=== PATIENT | female | born 1945 | race Caucasian/White ===

== ENCOUNTER → 2018-01-14 | Outpatient (CLI) | payer OTHER | LOC: BHFA 13:00 | PROVIDERS: ATTEND Internal Medicine Cardiovascular Disease | DX: I27.20 Pulmonary hypertension, unspecified (principal); I50.9 Heart failure, unspecified | CPT/HCPCS: 78452; 93017; A9500; J2785 ==

== ENCOUNTER 2018-02-12 08:59 | Inpatient (IN) | payer OTHER ==
[2018-02-12] MEDS ORDERED: DIAZEPAM 5 MG TAB PO ONE (09:05)
[2018-02-12] MEDS ORDERED: NS 1,000 ML IV ONE (09:05)
[2018-02-12] MEDS ORDERED: ASPIRIN EC 325 MG TAB PO ONE (09:05)
[2018-02-12] MEDS ORDERED: FAMOTIDINE 20 MG TAB PO ONE (09:05)
[2018-02-12] MEDS ORDERED: diphenhydrAMINE 25 MG CAP PO ONE (09:05)
[2018-02-12 10:01] LABS: PLATELET COUNT 136 10^3/uL (150-400)
[2018-02-12 10:02] LABS: INR 1.15 (0.83-1.16); PROTIME(PATIENT) 14.9 SEC (12.0-15.0)
[2018-02-12] MEDS ORDERED: LIDOCAINE 1% 300 MG/30 ML SDV ONE (11:15)
[2018-02-12] MEDS ORDERED: IOPAMIDOL (ISOVUE-370) 150 ML BTL IV ONE (11:16)
[2018-02-12] MEDS ORDERED: MIDAZOLAM 2 MG/2 ML VIAL ONE (11:16)
[2018-02-12] MEDS ORDERED: fentaNYL 100 MCG/2 ML INJ ONE (11:16)
--- NOTE | 2018-02-12 11:45 | PDGENHP ---
History & Physical Chief Complaint: Abnormal MPI, HTN. History of Present Illness: 72-year-old female with a history of drug refractory hypertension and diabetes currently on hemodialysis Saturday and Saturday with a history of symptoms of dyspnea and a recent stress myocardial perfusion imaging study demonstrating redistribution in the anterior wall. She is referred for coronary angiography. Additionally, following the procedure plans to admit her to the hospital to establish an adequate drug regimen to control her blood pressure. Pertinent Past, Social, Family History: Drug refractory hypertension, type 2 diabetes mellitus, end-stage renal disease currently on hemodialysis. Relevant Physical Exam: Alert and oriented, clear lungs, regular rate and rhythm with a 2/6 systolic ejection murmur left sternal border, left BKA, dopplerable right lower extremity pulses, bounding right femoral arterial pulse. Cardiorespiratory Assessment: 72-year-old female with multiple cardiac risk factors as defined above. She has an abnormal stress myocardial perfusion imaging study with intermediate risk features that suggest ischemia in the distribution of the LAD. She is referred for coronary angiography. She is stable from a cardiopulmonary perspective to undergo the procedure.
--- NOTE | 2018-02-12 11:45 | PDPROPOC ---
Sedation Plan of Care Sedation Plan of Care: vital signs stable, mental status noted, patient educated of risks, benefits, alternatives, patient can tolerate sedation ASA Classification: ASA 2 Planned drugs: fentanyl, midazolam Mallampati Score: Class 2 Mallampati Reference Image: Patient passed 3-3-2 rule?: Yes
[2018-02-12] MEDS ORDERED: hydrALAZINE 20 MG/ML VIAL ONE ×2 (11:51→16:41)
[2018-02-12] MEDS ORDERED: HEPARIN 10,000 UNIT/10 ML MDV (1,000 UNIT/ML) ONE (11:53)
[2018-02-12] MEDS ORDERED: BIVALIRUDIN 250 MG/5 ML VIAL IV ONE (12:19)
[2018-02-12] MEDS ORDERED: NITROGLYCERIN 0.4 MG BTL SL PRN (12:56)
[2018-02-12] MEDS ORDERED: ATROPINE SULFATE 1 MG/10 ML SYR IVP PRN (12:56)
[2018-02-12] MEDS ORDERED: ONDANSETRON 4 MG/2 ML VIAL IVP PRN (12:56)
--- NOTE | 2018-02-12 13:53 | CPEKG ---
Test Reason : OPEN Blood Pressure : / mmHG Vent. Rate : 057 BPM Atrial Rate : 058 BPM P-R Int : 173 ms QRS Dur : 103 ms QT Int : 491 ms P-R-T Axes : 034 006 014 degrees QTc Int : 478 ms Sinus rhythm Anteroseptal infarct, old Minimal ST depression, anterolateral leads Confirmed by Puma Franco ([id number]) on 02/12/2018 1:53:12 PM Referred By: Confirmed By:Puma Franco
--- NOTE | 2018-02-12 14:43 | PDDXCAT ---
Diagnostic Cath Note - . Date: 02/12/18 Supervisor Force Adjustment: Vishal Indication: other (Symptoms of exertional dyspnea. Abnormal nuclear stress test suggesting a% reversible perfusion defect in the distribution of the left anterior descending coronary artery.) - Procedure Access: right groin Procedure: left heart catheterization, coronary angiography, other (Left ventriculography was not performed.) - Materials Left Heart Cath size: 6F Left Heart Cath materials: JL4.0, JR3.5 Right Heart Cath size: 5F - Findings-Left Heart Catheterization LM: Prior to injection of contrast dye the coronary tree was visualized due to heavily calcified vessels. The left main is a large caliber vessel. There is a distal eccentric echo lucency consistent with a calcium shelf that does not result in visual obstruction of the lumen of the blood vessel. There is appropriate bifurcation into the left anterior descending and circumflex distributions. LAD: The LAD, as noted above, is heavily calcified. There are 2 diagonal branches identified. A 40% proximal little traverse LAD lesion is noted. A 70% lesion is noted at and involving the origin of a 2nd diagonal branch. The 2nd diagonal branch is a bifurcating vessel. The inferior branch is noted to be subtotally occluded with MALENA 1 flow. LCX: This is a moderate caliber vessel. There are 5 small diffusely diseased surgically insignificant diagonal branches noted. Otherwise the circumflex contains no obstructive lesions. RCA: The right coronary artery is dominant. The PDA and posterolateral branches are identified. There is a 50% stenosis noted in the distal right coronary artery within the AV groove. The right posterolateral branches distally occluded. Complications: None. Estimated blood loss: <50ml Closure method: Angioseal Assessment: 1. [place] coronary artery disease as described above with diffuse "diabetic"appearing vessels characterized by heavily calcified coronary arteries and severely diseased branch vessels. There is, however, a focal 70% lesion in the mid LAD at the origin of a 2nd diagonal branch. 2. A left ventriculogram was not performed. 3. Abnormal stress MPI demonstrating an 8% anterior reversible defect consistent with the above findings. 4. History of diabetes, drug refractory hypertension and end-stage renal disease on hemodialysis. Plan: The case was discussed with interventional cardiology. Attempts were made at intravascular ultrasound of the LAD. This was performed in an attempt to further delineate the severity of disease in the proximal LAD and left main. Unfortunately, this procedure was not successful due to inability to pass the marlyn catheter. As result, the procedure was aborted. We elected to proceed with medical therapy. In the event that medical therapy is not successful the patient can be returned to the cardiac catheterization laboratory for further evaluation and a planned revascularization of the LAD.
[2018-02-12] MEDS ORDERED: HYDROCODONE/APAP 5/325 TAB PO ONE (15:15)
--- NOTE | 2018-02-12 15:27 | SOAPPROG ---
SOAP Progress Note Assessment/Plan: Assessment: #ESRD- Main MWF (Dr. Flores) -plan HD either late this evening or early am then back to [facility] schedule -AVF access #CAD s/p cath today -no intervention, plan medical management for now- I discussed with Dr. Rodgers #Resistant HTN increase losartan to 100mg daily continue bystolic-- defer to cardiology on dose preference (I wrote for 5mg for now and HR in 50s) continue hydralazine 50mg po tid-- we have room to increase this will continue clonidine but will convert to po instead of patch so we can taper off -try to taper off tomorrow-- if needed, we can add in minoxidil (pt aware of hirsuitism) could change amlodipine to nifedipine ideally plan to get off clonidine and maybe nifedipine if tolerates minoxidil volume status looks good currently #Anemia of CKD -Hb at goal, continue MANJULA weekly dosing #MBD of CKD -renal diet when taking po -phoslo 667 mg po tid meals #hypothryoidism -continue synthroid I discussed with Dr. Rodgers and family Latanya Wallis MD [facility] pager [phone] 02/12/18 15:37 Subjective: 72 W with ESRD ( Main MWF Dr. Flores), DM2, resistant HTN admitted for elective cath given abnormal stress test. She has difficult to manage BP and not liking clonidine. Discussing with Dr. Flores, plan has been to transition off this and start minoxidil. She is also on ARB, hydralazine, beta mely. She underwent cath and no intervention required (does have some stenosis LAD and plans for medical management at this point). I saw her in recovery area in laboratory administrative director and she still has sheath in. Feels cold but denies any cp, sob, n/v. Son present. Objective: Laboratory Results 02/12/18 09:20 02/12/18 09:20 PT 14.9 SEC (12.0-15.0) 02/12/18 09:20 INR 1.15 (0.83-1.16) 02/12/18 09:20 Physical Exam - Physical Exam General Appearance: alert, no apparent distress, other (lying flat in bed comfortably on O2 by NC, speaking full sentences) EENT: other (mmm) Neck: supple Respiratory: lungs clear Cardiac/Chest: regular rate, rhythm, other (no rub) Abdomen: normal bowel sounds, non-tender, soft Skin: warm/dry Extremities: other (sheath still in ,legs warm, no edema, UE AVF +thrill/bruit) Neuro/Psych: alert, oriented x 3 ICD10 Worksheet Patient Problems: Problems Problem Status Onset ESRD (end stage renal disease) Acute - ICD10 Problem Qualifiers (1) ESRD (end stage renal disease)
[2018-02-12] MEDS ORDERED: hydrALAZINE 20 MG/ML VIAL IVP ONE (16:45)
[2018-02-12] MEDS: HYDROCODONE/APAP 5/325 TAB PO PRN (17:28)
[2018-02-12] MEDS: CALCIUM ACETATE 667 MG CAP PO SCH (20:04)
[2018-02-12] MEDS: NIFEdipine ER 60 MG TAB PO SCH (20:04)
[2018-02-13 04:41] LABS: PLATELET COUNT 126 10^3/uL (150-400)
--- NOTE | 2018-02-13 07:58 | SOAPPROG ---
JOSUE Progress Note Assessment/Plan: Assessment: ESRD, HD today HTN, difficult to control, better today PVOD/BKA on left CAD, 70% LAD lesion, med mgmt for now calcified cor vessels Plan: continue current anti HTN meds I would be interested in her intra aortic pressure, with calcified coronary vessels, wondering if some of her HTN is due to noncompressible peripheral vessels leading to spurious readings HD tomorrow 02/13/18 07:53 Subjective: feels fine today no cp sob nausea vomiting anorexia or fatigue slept OK appetite OK no pain Objective: Vital Signs Temp Pulse Resp BP Pulse Ox 36.7 C 45 L 16 116/45 L 93 02/13/18 04:00 02/13/18 04:00 02/13/18 04:00 02/13/18 04:00 02/13/18 04:00 Laboratory Results 02/13/18 03:23 02/13/18 03:23 02/12/18 02/13/18 02/14/18 05:59 05:59 05:59 Intake Total 1100 Balance 1100 PT 14.9 SEC (12.0-15.0) 02/12/18 09:20 INR 1.15 (0.83-1.16) 02/12/18 09:20 Physical Exam - Physical Exam General Appearance: alert, thin Neck: normal inspection Respiratory: No rhonchi, No wheezing Cardiac/Chest: regular rate, rhythm, systolic murmur, No edema, No friction rub Abdomen: normal bowel sounds, non-tender, soft Skin: warm/dry Extremities: other (LBKA), No swelling Neuro/Psych: alert, normal mood/affect, oriented x 3 ICD10 Worksheet Patient Problems: Problems Problem Status Onset ESRD (end stage renal disease) Acute
[2018-02-13] MEDS: CALCIUM ACETATE 667 MG CAP PO SCH ×3 (09:16→17:52)
--- NOTE | 2018-02-13 10:08 | SOAPPROG ---
JOSUE Progress Note Assessment/Plan: Assessment: 1. Coronary artery disease. She has heavily calcified/diabetic coronary disease with the most significant lesion being a 70% mid LAD lesion. In talking to her she has no symptoms of angina. Based on her overall health and initial difficulties in performing an intravascular ultrasound the decision was made to manage her medically. Thus far she appears to be doing well. If we have difficulties with events that are suspicious for ischemia we can bring her back to the equipment operator/laborer/supervisor for a planned revascularization. 2. Hypertension. Her intra arterial blood pressures during the cardiac catheterization were consistent with her noninvasive measurements. I think a lot of her hypertension is on the basis of noncompliant blood vessels. With a recent adjustments in her medications we have seen some improvement in her blood pressure control. 3. Diabetes mellitus. 4. Hyperlipidemia. 5. End-stage renal disease currently on hemodialysis. 6. PVD status post left BKA. This appears stable. Plan: 1. We will continue hospital observation on her current antihypertensive regimen. 2. During his hospitalization we will attempt to transition her off of clonidine as she has experienced significant xerostomia. 3. Will defer to Nephrology regarding management of her hemodialysis. 02/13/18 10:08 Subjective: She states that she feels much better today. When I asked her to be more specific regarding why she feels better she really can't put her finger on it. She specifically denies chest pain and symptoms of dyspnea. She has had no pain at the right groin access site. She is currently undergoing hemodialysis. Blood pressures have been improved with the recent changes in her medications. Objective: Vital Signs Temp Pulse Resp BP Pulse Ox 36.7 C 45 L 16 116/45 L 93 02/13/18 04:00 02/13/18 04:00 02/13/18 04:00 02/13/18 04:00 02/13/18 04:00 Laboratory Results 02/13/18 03:23 02/13/18 03:23 02/12/18 02/13/18 02/14/18 05:59 05:59 05:59 Intake Total 1100 Balance 1100 PT 14.9 SEC (12.0-15.0) 02/12/18 09:20 INR 1.15 (0.83-1.16) 02/12/18 09:20 Physical Exam - Physical Exam General Appearance: thin EENT: PERRL/EOMI, normal ENT inspection, pharynx normal, TMs normal Neck: non-tender, full range of motion, supple, normal inspection Respiratory: chest non-tender, lungs clear, normal breath sounds Cardiac/Chest: regular rate, rhythm, No edema, No gallop, No JVD Peripheral Pulses: 2+: carotid (R), carotid (L), femoral (R), femoral (L), dorsalis-pedis (R), dorsalis-pedis (L) Abdomen: normal bowel sounds, non-tender, soft Pelvic Exam: deferred Rectal: deferred Back: Normal inspection Skin: normal color, warm/dry Lymphatic: no adenopathy Extremities: normal range of motion, non-tender, normal inspection, normal capillary refill Neuro/Psych: no motor/sensory deficits, alert, normal mood/affect, oriented x 3 ICD10 Worksheet Patient Problems: Problems Problem Status Onset ESRD (end stage renal disease) Acute
[2018-02-13] MEDS: NEBIVOLOL HCL 5 MG TAB PO SCH (11:44)
[2018-02-13] MEDS: NIFEdipine ER 60 MG TAB PO SCH ×2 (11:45→20:48)
[2018-02-13] MEDS: LOSARTAN POTASSIUM 50 MG TAB PO SCH (11:45)
--- NOTE | 2018-02-13 14:06 | PDMN ---
Medical Necessity Medical necessity: [facility] M197 Hypertension: 82 yo w/ abn nuc stress test here for cardiac cath w/ results showing CAD, heavily calcified coronary arteries and severely diseased branch vessels and a focal 70% lesion mid LAD. Interventional cardiology brought in w/ attempt to do intravascular U/S of LAD but procedure unsuccessful. Current plan is to proceed with medical therapy. Pt having issues w/ HTN during and post procedure, last SBP 170s, pt requires additional MN to get BP under control given comorbidities, cardiac risk and will need cont tele monitoring and monitoring for s/sx ischemia. Sig med hx for drug refractory HTN, DM, ESRD currently on hemodialysis, PVD w/ L BKA. Change to IP status 02/13 @1345 per MD order.
--- NOTE | 2018-02-13 14:17 | ASMTCMCOM ---
CM Note CM Note Notes: Pt is a 72 y/o female admitted for abnormal MPI and HTN. Pt is currently on hemodialysis MWF. PT has been ordered and awaiting recommendations. Needs are TBD at this time. CM to follow. Plan: TBD Date Signed: 02/13/2018 02:16 PM Electronically Signed By:MARGARITA Stovall
[2018-02-13] MEDS: HYDROCODONE/APAP 5/325 TAB PO PRN (17:59)
[2018-02-14 04:40] LABS: PLATELET COUNT 130 10^3/uL (150-400)
--- NOTE | 2018-02-14 09:03 | SOAPPROG ---
JOSUE Progress Note Assessment/Plan: Assessment: ESRD, HD today HTN, difficult to control, better today PVOD/BKA on left CAD, 70% LAD lesion, med mgmt for now calcified cor vessels bradycardia into the 40s Plan: continue current anti HTN meds, bradycardia: may want to consider weaning catapress off, or perhaps a lower dose , need the beta mely for her CAD I would be interested in her intra aortic pressure, with calcified coronary vessels, wondering if some of her HTN is due to noncompressible peripheral vessels leading to spurious readings HD today 02/13/18 07:53 02/14/18 08:58 Subjective: spirits good tolerating HD today no cp sob nausea or vomiting appetite OK, [place] toast doesn't taste good to her no abd pain sleeping ok energy is OK Objective: Vital Signs Temp Pulse Resp BP Pulse Ox 36.7 C 47 L 16 141/93 H 95 02/14/18 04:00 02/14/18 04:00 02/14/18 04:00 02/14/18 04:00 02/14/18 04:00 Laboratory Results 02/14/18 03:30 02/14/18 03:30 02/13/18 02/14/18 02/15/18 05:59 05:59 05:59 Intake Total 1100 550 Output Total 3000 Balance 1100 -2450 PT 14.9 SEC (12.0-15.0) 02/12/18 09:20 INR 1.15 (0.83-1.16) 02/12/18 09:20 Physical Exam - Physical Exam General Appearance: alert, thin Neck: normal inspection Respiratory: No rhonchi, No wheezing Cardiac/Chest: regular rate, rhythm, systolic murmur, No edema, No friction rub Abdomen: normal bowel sounds, non-tender, soft Extremities: No pedal edema Neuro/Psych: alert, normal mood/affect, oriented x 3 ICD10 Worksheet Patient Problems: Problems Problem Status Onset ESRD (end stage renal disease) Acute
[2018-02-14] MEDS: CALCIUM ACETATE 667 MG CAP PO SCH ×3 (09:12→16:48)
[2018-02-14] MEDS: NIFEdipine ER 60 MG TAB PO SCH ×2 (11:10→19:59)
[2018-02-14] MEDS: NEBIVOLOL HCL 5 MG TAB PO SCH ×2 (11:11→19:17)
[2018-02-14] MEDS: LOSARTAN POTASSIUM 50 MG TAB PO SCH (11:11)
--- NOTE | 2018-02-14 14:31 | SOAPPROG ---
SOAP Progress Note Assessment/Plan: Assessment: 1. Coronary artery disease. She has heavily calcified/diabetic coronary disease with the most significant lesion being a 70% mid LAD lesion. In talking to her she has no symptoms of angina. Based on her overall health and initial difficulties in performing an intravascular ultrasound the decision was made to manage her medically. Thus far she appears to be doing well. If we have difficulties with events that are suspicious for ischemia we can bring her back to the dental lab technician for a planned revascularization. 2. Hypertension. Her intra arterial blood pressures during the cardiac catheterization were consistent with her noninvasive measurements. I think a lot of her hypertension is on the basis of noncompliant blood vessels. With a recent adjustments in her medications we have seen some improvement in her blood pressure control. 3. Diabetes mellitus. 4. Hyperlipidemia. 5. End-stage renal disease currently on hemodialysis. 6. PVD status post left BKA. This appears stable. 7. Bradycardia. 02/14/2018: Overall I am very happy with how she is doing. The overall trend of her blood pressure curve has been highly favorable without significant episodes of hypotension. Plan: Will plan to cut her oral clonidine and half today. I will continue her other medications. We will need to carefully follow her blood pressures as we gradually wean her off the clonidine. I think that it is likely she will be stable for discharge tomorrow. Our goal during this hospitalization was to have better blood pressure control which I think we have achieved. I do not think that we can shoot for perfect blood pressure control without eliciting symptoms. We will have to gradually up titrate her medications in the outpatient environment to improve upon her blood pressure control. 02/14/18 14:29 Subjective: She states that she continues to feel well. She has not had any chest pain or symptoms of dizziness. She did have dialysis successfully performed today. The overall trend of her blood pressures has been toward improvement. She is, however, significantly bradycardic. Objective: Vital Signs Temp Pulse Resp BP Pulse Ox 36.6 C 53 L 16 149/54 H 98 02/14/18 11:31 02/14/18 11:31 02/14/18 11:31 02/14/18 11:31 02/14/18 11:31 Laboratory Results 02/14/18 03:30 02/14/18 03:30 02/13/18 02/14/18 02/15/18 05:59 05:59 05:59 Intake Total 1100 550 Output Total 3000 Balance 1100 -2450 PT 14.9 SEC (12.0-15.0) 02/12/18 09:20 INR 1.15 (0.83-1.16) 02/12/18 09:20 Physical Exam - Physical Exam General Appearance: alert, no apparent distress, thin EENT: PERRL/EOMI, normal ENT inspection, pharynx normal, TMs normal Neck: non-tender, full range of motion, supple, normal inspection Respiratory: chest non-tender, lungs clear, normal breath sounds Cardiac/Chest: normal peripheral pulses, bradycardia Peripheral Pulses: 2+: carotid (R), carotid (L) Abdomen: normal bowel sounds, non-tender, soft Pelvic Exam: deferred Rectal: deferred Back: Normal inspection Skin: normal color, warm/dry Lymphatic: no adenopathy Extremities: normal range of motion, non-tender, normal inspection, normal capillary refill Neuro/Psych: no motor/sensory deficits, alert, normal mood/affect, oriented x 3 ICD10 Worksheet Patient Problems: Problems Problem Status Onset ESRD (end stage renal disease) Acute
[2018-02-14] MEDS: HYDROCODONE/APAP 5/325 TAB PO PRN (20:05)
[2018-02-15] MEDS ORDERED: NIFEdipine ER 60 MG TAB PO SCH
[2018-02-15] MEDS: LOSARTAN POTASSIUM 50 MG TAB PO SCH (08:29)
[2018-02-15] MEDS: CALCIUM ACETATE 667 MG CAP PO SCH ×2 (08:29→12:31)
[2018-02-15] MEDS: NIFEdipine ER 60 MG TAB PO SCH (08:30)
[2018-02-15] MEDS: NEBIVOLOL HCL 5 MG TAB PO SCH (08:41)
--- NOTE | 2018-02-15 09:39 | SOAPPROG ---
JOSUE Progress Note Assessment/Plan: Assessment: I take care of Ally [facility] in [place]. -I've reviewed her coronary anatomy with Dr. Rodgers. At this point, it doesn't seem as if she has been having issues with ischemia, even on dialysis. We are going to follow -BP is better with adjustment of CCB. We are weaning clonidine -Next HD Saturday -She is ok for DC. Plan: 02/15/18 09:37 Subjective: Doing well, in good spirits Objective: Vital Signs Temp Pulse Resp BP Pulse Ox 36.7 C 48 L 18 148/47 H 91 L 02/15/18 08:19 02/15/18 08:19 02/15/18 08:19 02/15/18 08:19 02/15/18 08:19 Laboratory Results 02/14/18 03:30 02/15/18 03:36 02/14/18 02/15/18 02/16/18 05:59 05:59 05:59 Intake Total 550 1125 Output Total 3000 Balance -2450 1125 PT 14.9 SEC (12.0-15.0) 02/12/18 09:20 INR 1.15 (0.83-1.16) 02/12/18 09:20 Physical Exam - Physical Exam General Appearance: no apparent distress Respiratory: lungs clear Cardiac/Chest: bradycardia, systolic murmur Skin: normal color Extremities: normal inspection Neuro/Psych: oriented x 3 ICD10 Worksheet Patient Problems: Problems Problem Status Onset ESRD (end stage renal disease) Acute
[2018-02-15 11:54] VITALS: BP 141/52
--- NOTE | 2018-02-15 13:35 | ASDISCHSUM ---
Discharge Information Plan Status:Home with No Needs Medically Cleared to Leave:02/14/2018 Discharge Date:02/14/2018 CM D/C Disposition:Home, Routine, Self-Care ADT D/C Disposition:Home, Routine, Self-Care Projected Discharge Date:02/14/2018 Transportation at D/C: Discharge Delay Reason: Follow-Up Date:02/14/2018 Discharge Slot: Final Diagnosis: Placement Information Patient Contact Information Contact Name:BROCK Relationship:Jose Rafael Address: Work Phone: City: [facility] Phone: State/Zip Code: Email: Financial Information Financial Class:Medicare Primary Plan Desc:MEDICARE INPATIENT Primary Plan Number:[id number] Secondary Plan Desc: Secondary Plan Number: Assessment Information LACE LACE Length of stay for Answers: 1 day current admission Acuity / Level of Answers: Yes Care: Did the patient have an inpatient admission? Comorbidities - select Answers: Coronary Artery Disease all that apply Diabetes (uncontrolled or controlled) Moderate or severe liver or renal disease Peripheral vascular disease Other Notes: HTN; HLD # of Emergency department Answers: 0 visits in the last 6 months Score: 13 Date Signed: 02/15/2018 01:32 PM Electronically Signed By:Paula Swan RN [facility] CM Progress Note CM Note CM Note Notes: Pt is a 72 y/o female admitted for abnormal MPI and HTN. Pt is currently on hemodialysis MWF. PT has been ordered and awaiting recommendations. Needs are TBD at this time. CM to follow. Plan: TBD Date Signed: 02/13/2018 02:16 PM Electronically Signed By:MARGARITA Stovall Case Management Discharge Plan Note Case Management Discharge Discharge Order Complete? Answers: Yes Patient to Obtain Answers: via Family Medications Transportation Arranged Answers: Family/Friends Discharge Comments Notes: 02/15/2018 Case Management Note Pt to discharge home with family support with follow up as directed. IM signed. Family to transport home. Date Signed: 02/15/2018 01:34 PM Electronically Signed By:aPula Swan RN Intervention Information Intervention Type:No Admission Order Date of Service:02/13/2018 06:48 AM Patient Type:Observation Staff Member:Francine Cifuentes Hours: Discipline: Severity: Comment: Intervention Type:*CAST-Signed Date of Service:02/13/2018 12:02 PM Patient Type:Observation Staff Member:Lizeth Thakkar Hours: Discipline: Severity: Comment: Intervention Type:*IM-Signed Date of Service:02/15/2018 01:33 PM Patient Type:Inpatient Staff Member:YEISON Swan, Paula Hours: Discipline: Severity: Comment:
--- NOTE | 2018-02-16 00:50 | GDS ---
DISCHARGE DIAGNOSES: 1. Coronary artery disease with probable high-grade lesion in the mid left anterior descending. 2. Drug resistant hypertension. 3. End-stage renal disease, currently on hemodialysis. 4. Peripheral vascular disease, status post below the knee amputation. 5. Type 2 diabetes mellitus. 6. Hyperlipidemia. 7. Bradycardia, likely iatrogenic. HOSPITAL COURSE: The patient was admitted for coronary angiography in light of her history of abnorm al stress test. That procedure was performed on February 12. There is a full and separately detaile d report noted on the chart. This did suggest a 70% lesion in the mid LAD involving the 2nd diagonal branch. There was also diffuse branch vessel disease consistent with her longstanding history of ty pe 2 diabetes mellitus. We did not perform left ventriculogram. Attempts were made at intravascular ultrasound. Unfortunately, this was not possible due to her anatomy. As a result, this was aborted and it was decided to treat her medically given the fact she does not have high-grade angina nor did she have a high risk stress test. She was subsequently admitted to the hospital and underwent hemod ialysis. She also had adjustment of her medications during this hospitalization. We stopped her aml odipine and placed her on high-dose nifedipine twice daily. Additionally, she was transitioned from a Catapres patch over to twice daily Catapres and eventually once daily clonidine. Plans are to even tually discontinue the clonidine altogether and potentially try to improve upon blood pressure contro l with higher doses of hydralazine in addition to beta blockade or potentially the addition of minoxi dil. During her hospitalization here, she was hemodynamically stable. We did see a significant impr ovement in her blood pressures. At the time of discharge, her blood pressures were in the 140's and 150's systolic compared to admission blood pressure of 180's to 190's systolic. She did not manifest any arrhythmias. DISCHARGE MEDICATIONS: 1. Hydralazine 50 mg 3 times daily. 2. Losartan 100 mg daily. 3. Bystolic 5 mg daily. 4. Nifedipine 60 mg twice daily. 5. PhosLo. 6. Aspirin 81 mg daily. FOLLOWUP: She will follow up with me in the office within the next 2 weeks. It should be noted that she is currently not on a statin medication. The use of this medication will be discussed at follow up. /[id number]/MODL
== END 2018-02-15 14:57 | disposition home or self-care (01) | DRG 286 ==
LOC: FCATH 08:59 → F2W 18:08 → OBSVTOIN 02-13 13:45
PROVIDERS: ADMIT Internal Medicine Cardiovascular Disease; ATTEND Internal Medicine Cardiovascular Disease
DX: I25.10 Atherosclerotic heart disease of native coronary artery without angina pectoris (principal); I12.0 Hypertensive chronic kidney disease with stage 5 chronic kidney disease or end stage renal disease; N18.6 End stage renal disease; E11.51 Type 2 diabetes mellitus with diabetic peripheral angiopathy without gangrene; E78.5 Hyperlipidemia, unspecified; R00.1 Bradycardia, unspecified; Z99.2 Dependence on renal dialysis; Z89.512 Acquired absence of left leg below knee; E03.9 Hypothyroidism, unspecified
CPT/HCPCS: C1725; C1753; C1769; C1887; J0360; J0583; J1644; J2250; J3010; Q9967

== ENCOUNTER → 2018-06-12 | Outpatient (CLI) | payer OTHER | LOC: FIMAGING 14:15 | PROVIDERS: ATTEND Internal Medicine Cardiovascular Disease | DX: J90 Pleural effusion, not elsewhere classified (principal); I51.7 Cardiomegaly; E87.70 Fluid overload, unspecified; Z99.2 Dependence on renal dialysis ==

== ENCOUNTER 2018-07-07 16:32 | Observation (INO) | payer OTHER ==
[2018-07-07] MEDS ORDERED: NS 500 ML IV ONE (16:48)
[2018-07-07] MEDS ORDERED: ONDANSETRON 4 MG/2 ML VIAL IVP ONE ×2 (16:49→18:36)
--- NOTE | 2018-07-07 16:52 | EDPHY ---
H & P Stated Complaint: N/V/D Time Seen by Provider: 07/07/18 16:46 HPI/ROS: CHIEF COMPLAINT: Vomiting and diarrhea HISTORY OF PRESENT ILLNESS: The patient is a 72-year-old female with a history of diabetes with end-stage renal disease and hemodialysis Saturday, Saturday & Saturday who states that she has been having nausea vomiting and diarrhea for the last 3 days. She did get dialyzed today at [facility] in [place] by Dr. Flores. She states that she was way below her dry weight so they did not take any fluid off. She is not sure if they added any fluids. She feels weak and tired. She has not had any blood in her stool. She has not vomited for the last day because she states that her stomach is empty. She does have a history of appendectomy, cholecystectomy and hysterectomy. No urinary symptoms. No rashes. No abdominal pain. She has been throwing up her antihypertensives. Severity: Moderate Modifying factors: None REVIEW OF SYSTEMS: Constitutional: denies: chills, fever, recent illness, recent injury EENTM: denies: blurred vision, double vision, nose congestion Respiratory: denies: cough, shortness of breath Cardiac: denies: chest pain, irregular heart rate, lightheadedness, palpitations Gastrointestinal/Abdominal: See HPI denies: abdominal pain, blood streaked stools Genitourinary: denies: dysuria, frequency, hematuria, pain Musculoskeletal: denies: joint pain, muscle pain Skin: denies: lesions, rash, jaundice, bruising Neurological: denies: headache, numbness, paresthesia, tingling, dizziness, weakness Hematologic/Lymphatic: denies: blood clots, easy bleeding, easy bruising Immunologic/allergic: denies: HIV/AIDS, transplant 10 systems reviewed and negative except as noted EXAM: GENERAL: Well-appearing, well-nourished and in no acute distress. HEAD: Atraumatic, normocephalic. EYES: Pupils equal round and reactive to light, extraocular movements intact, sclera anicteric, conjunctiva are normal. ENT: TMs normal, nares patent, oropharynx clear without exudates. Dry mucous membranes. NECK: Normal range of motion, supple without lymphadenopathy or JVD. LUNGS: Breath sounds clear to auscultation bilaterally and equal. No wheezes rales or rhonchi. HEART: Regular rate and rhythm without murmurs, rubs or gallops. ABDOMEN: Soft, nontender, normoactive bowel sounds. No guarding, no rebound. No masses appreciated. BACK: No CVA tenderness, no spinal tenderness, step-offs or deformities EXTREMITIES: Left leg amputation NEUROLOGICAL: Cranial nerves II through XII grossly intact. Normal speech, normal gait. 5/5 strength, normal movement in all extremities, normal sensation , normal reflexes PSYCH: Normal mood, normal affect. SKIN: Warm, dry, normal turgor, no visible rashes or lesions. Source: Patient Exam Limitations: No limitations - Medical/Surgical History Hx Asthma: No Hx Chronic Respiratory Disease: No Hx Diabetes: Yes Hx Cardiac Disease: Yes Hx Renal Disease: Yes Hx Cirrhosis: No Hx Alcoholism: No Hx HIV/AIDS: No Hx Splenectomy or Spleen Trauma: No Other PMH: DM, HD, HTN, L leg amputation, home O2, - Family History Significant Family History: No pertinent family hx - Social History Smoking Status: Former smoker Alcohol Use: Sober Drug Use: None Constitutional: Initial Vital Signs Temperature (C) 36.8 C 07/07/18 16:37 Heart Rate 58 L 07/07/18 16:37 Respiratory Rate 16 07/07/18 16:37 Blood Pressure 241/86 H 07/07/18 16:37 O2 Sat (%) 90 L 07/07/18 16:37 O2 Delivery Mode Nasal Cannula O2 (L/minute) 2 Allergies/Adverse Reactions: meperidine [From Demerol] Allergy (Verified 07/07/18 16:37) "Makes me go nuts" morphine Allergy (Verified 07/07/18 16:37) Rash Home Medications: Medication Instructions Recorded Calcium Acetate [Phoslo (*)] 667 mg PO TIDMEAL 02/11/18 Levothyroxine [Synthroid 75 mcg 75 mcg PO DAILY06 02/11/18 (*)] hydrALAZINE [Apresoline 50 mg (*)] 75 mg PO BID 02/11/18 Calcium Acetate [Phoslo (*)] 667 mg PO TIDMEAL cap 02/15/18 NIFEdipine ER [Adalat CC 60 mg (*)] 60 mg PO BID #60 tab 02/15/18 Acetaminophen [Tylenol 325mg (*)] 650 mg PO Q6 PRN 07/08/18 Albuterol [Proventil Inhaler HFA 1 puffs IH Q6HRS PRN 07/08/18 (*)] Isosorbide Mononitrate [Isosorbide 60 mg PO DAILY 07/08/18 Mononitrate ER] MIRTAZAPINE [Remeron 7.5 mg] 7.5 mg PO HS PRN 07/08/18 Metoclopramide [Reglan 5 mg (*)] 5 mg PO HS 07/08/18 Nebivolol HCl [Bystolic 5 mg (*)] 2.5 mg PO DAILY 07/08/18 Polyethylene Glycol 3350 [Miralax 17 gm PO DAILY PRN 07/08/18 17 gm (*)] Medical Decision Making - Diagnostics EKG Interpretation: An EKG obtained and was read and documented in trace view. Please see trace view for full reading and report. Sinus rhythm, ventricular hypertrophy, similar to previous ED Course/Re-evaluation: 5:[address] Misbah Rodgers the patient's supervisor special services called and requested that we obtain an EKG and troponin as well. 6:40 p.m. patient is feeling much better. She does not wish to be admitted to the hospital. She is still hypertensive but has not taken her antihypertensive medications in several days. Will give her evening doses today and continue to observe. 10:00 p.m. Patient is still persistently hypertensive. She is no longer vomiting. Will admit to the hospital . Discussed the case with Dr. Royal who accepts. Differential Diagnosis: Partial list of the Differential diagnosis considered include but were not limited to; hypertensive urgency, gastroenteritis, dehydration, electrolyte abnormality and although unlikely based on the history and physical exam, I also considered ischemia, obstruction. I discussed these differential diagnoses and the plan with the patient as well as the usual and expected course. The patient understands that the diagnosis is provisional and that in medicine we are not always correct and that further workup is often warranted. Usual and customary warnings were given. All of the patient's questions were answered. The patient was instructed to return to the emergency department should the symptoms at all worsen or return, otherwise to followup with the physician as we discussed. - Data Points Laboratory Results: Laboratory Results 07/07/18 16:45 07/07/18 16:45 Medications Given: Discontinued Medications Calcium Acetate (Phoslo) 667 mg PO TIDMEAL [facility] Stop: 01/04/19 11:59 Last Admin: 07/08/18 11:16 Dose: 667 mg Hydralazine HCl (Apresoline) 75 mg PO EDNOW ONE Stop: 07/07/18 18:36 Last Admin: 07/07/18 19:28 Dose: 75 mg Hydralazine HCl (Apresoline) 75 mg PO BID [facility] Stop: 01/04/19 08:59 Last Admin: 07/08/18 08:07 Dose: 75 mg Sodium Chloride (Ns) 500 mls @ 0 mls/hr IV EDNOW ONE; Wide Open PRN Reason: Protocol Stop: 07/07/18 16:49 Last Admin: 07/07/18 17:02 Dose: 500 mls Levothyroxine Sodium (Synthroid) 75 mcg PO DAILY AT 6AM [facility] Stop: 01/04/19 06:59 Last Admin: 07/08/18 08:07 Dose: 75 mcg Miscellaneous Medication (Isosorbide Mononitrate [Isosorbide Mononitrate Er]) 60 mg PO DAILY [facility] Stop: 01/04/19 10:14 Last Admin: 07/08/18 11:14 Dose: Not Given Nebivolol (Bystolic) 2.5 mg PO DAILY [facility] Stop: 01/04/19 10:14 Last Admin: 07/08/18 11:16 Dose: 2.5 mg Nifedipine (Adalat Cc) 60 mg PO DAILY [facility] Stop: 01/03/19 18:44 Last Admin: 07/08/18 05:48 Dose: Not Given Nifedipine (Adalat Cc) 60 mg PO EDNOW ONE Stop: 07/07/18 19:01 Last Admin: 07/07/18 19:28 Dose: 60 mg Nifedipine (Adalat Cc) 60 mg PO BID [facility] Stop: 01/04/19 08:59 Last Admin: 07/08/18 08:28 Dose: 60 mg Ondansetron HCl (Zofran) 4 mg IVP EDNOW ONE Stop: 07/07/18 16:50 Last Admin: 07/07/18 17:03 Dose: 4 mg Ondansetron HCl (Zofran) 4 mg IVP EDNOW ONE Stop: 07/07/18 18:37 Last Admin: 07/07/18 18:49 Dose: 4 mg Point of Care Test Results: Chemistry 07/07/18 17:27 POC Troponin I 0.04 ng/mL ng/mL (0.00-0.08) Departure - Departure Disposition: [facility] Acute Clinical Impression: ESRD (end stage renal disease) Hypertension Qualifiers: Hypertension type: essential hypertension Qualified Code(s): I10 - Essential ( primary) hypertension Diarrhea Qualifiers: Diarrhea type: unspecified type Qualified Code(s): R19.7 - Diarrhea, unspecified Condition: Good
[2018-07-07 17:03] LABS: PLATELET COUNT 141 10^3/uL (150-400)
[2018-07-07] MEDS ORDERED: NIFEdipine ER 60 MG TAB PO SCH (18:45)
--- NOTE | 2018-07-07 18:50 | CPEKG ---
Test Reason : OPEN Blood Pressure : / mmHG Vent. Rate : 053 BPM Atrial Rate : 054 BPM P-R Int : 177 ms QRS Dur : 093 ms QT Int : 500 ms P-R-T Axes : 029 -10 066 degrees QTc Int : 470 ms Sinus rhythm Consider left ventricular hypertrophy Anterior Q waves, possibly due to LVH Confirmed by Abdulaziz Prasad ([id number]) on 07/07/2018 6:50:05 PM Referred By: Abdulaziz Prasad Confirmed By:Abdulaziz Prasad
[2018-07-07] MEDS ORDERED: NIFEdipine ER 60 MG TAB PO ONE (19:00)
--- NOTE | 2018-07-07 19:29 | CPEKG ---
Test Reason : OPEN Blood Pressure : / mmHG Vent. Rate : 056 BPM Atrial Rate : 056 BPM P-R Int : 158 ms QRS Dur : 094 ms QT Int : 489 ms P-R-T Axes : -04 -12 050 degrees QTc Int : 473 ms Sinus rhythm Consider left ventricular hypertrophy Anterior Q waves, possibly due to LVH Confirmed by Jossue Earl ([id number]) on 07/07/2018 7:29:16 PM Referred By: JOSSUE EARL Confirmed By:Jossue Earl
[2018-07-07] MEDS ORDERED: ONDANSETRON 4 MG/2 ML VIAL IVP PRN (22:45)
[2018-07-07] MEDS ORDERED: ONDANSETRON DISINTEGRATING 4 MG TAB PO PRN (22:45)
[2018-07-07] MEDS ORDERED: PROMETHAZINE HCL 25 MG/ML INJ IVP PRN (22:45)
[2018-07-07] MEDS ORDERED: ACETAMINOPHEN 325 MG TAB PO PRN (22:45)
[2018-07-07] MEDS ORDERED: hydrALAZINE 20 MG/ML VIAL IVP PRN (22:47)
--- NOTE | 2018-07-08 02:33 | GHP ---
[f rep st] HISTORY AND PHYSICAL DATE OF ADMISSION: 07/07/2018 PRIMARY CARE PHYSICIAN: Kevyn Walton MD SOURCE: Patient provides history, appears very reliable. EMR was reviewed and case discussed with ED provider. CHIEF COMPLAINT: Intractable nausea, vomiting, and diarrhea. HISTORY OF PRESENT ILLNESS: This is a very pleasant 72-year-old female, who goes by her middle name presents to the emergency department today with complaints of nonbloody nausea, vomiting, and diarrhea for the past 3-4 days. The patient is a patient with a history of end-stage renal disease on dialysis Saturday, Saturday, Saturday. She reports that over the last several days she has not been able to tolerate her pills or any oral hydration. She has been feeling weak and fatigued. She has noted some increased abdominal cramping diffusely and some upper abdominal pain related to her vomiting. She denies any known melena, hematochezia or hematemesis. She does have a history of hemorrhoids and more recently these have flared up with her multiple episodes of diarrhea. The patient denies any known sick contacts, but she does go to dialysis Saturday, Saturday, Saturday. She has not had any recent travel. She has been experiencing some chills and some night sweats since her symptoms started. She does report a headache without any changes in vision. No chest pain, shortness of breath worse from baseline. She does wear oxygen chronically. She has persistent dyspnea on exertion which is unchanged. REVIEW OF SYSTEMS: Ten systems reviewed, negative except as noted above. ALLERGIES: To morphine, Demerol, codeine, and cherries. HOME MEDICATIONS: As listed on [facility] med rec showing Bystolic 5 mg half tab daily, hydralazine 75 mg p.o. twice daily, nifedipine XL 60 mg p.o. twice daily, Imdur ER 60 mg p.o. in the morning, Reglan 5 mg p.o. at h.s., levothyroxine 75 mcg daily in the morning. MiraLAX 17 g p.o. daily. Mirtazapine 50 mg half tab at h.s. Tylenol 650 mg q.6h p.r.n., PhosLo 667 one tab p.o. twice daily with snacks and 1 tab with meals. Ventolin q.6 hours. The patient was previously on amlodipine, clonidine and losartan, aspirin and atorvastatin which were discontinued earlier in the year. PAST MEDICAL HISTORY: Significant for diabetes type 2 with end-stage renal disease on dialysis Saturday, Saturday, Saturday, followed by Dr. Flores, HTN, hypothyroidism, CAD with history of 70% occlusion of the mid LAD not amenable to intervention and on medical management. The patient followed by Dr. Rodgers, chronic hypoxic respiratory failure on O2, hyperlipidemia, and hemorrhoids. PAST SURGICAL HISTORY: Significant for appendectomy, cholecystectomy, hysterectomy, cardiac cath in January 2018, left BKA and since that time a left femur ORIF. FAMILY HISTORY: Noncontributory. SOCIAL HISTORY: Patient lives with her son and [id number]. She does not smoke, drink, or utilize any illicit drugs. CODE STATUS: Full. PHYSICAL EXAMINATION: VITAL SIGNS: Upon arrival, blood pressure 241/86, heart rate 58, respiratory rate 16, O2 saturation 90% on room air, temperature 36.8. Vitals currently available blood pressure is 188/66, heart rate 50, respiratory rate 16, O2 saturation 96% on 2 L by nasal cannula. GENERAL: No acute distress pleasant adult female is resting quietly in bed. She is awake, pleasant and cooperative. She does appear fatigued and dehydrated. HEAD: Normocephalic, atraumatic. EYES: Extraocular muscles are grossly intact. Pupils equal, round, symmetric, reactive to light. Lens reflex appreciated bilaterally. No scleral icterus or conjunctival injection. ENT: Mucous membranes appear dry. The patient is missing some dentition. No nasal discharge. NECK: Supple. Trachea midline. CV: Bradycardic with regular rhythm. No murmurs, rubs, or gallops appreciated. RESPIRATORY: Lungs are clear to auscultation bilaterally, slightly diminished at the bases. No wheezes , rales, or rhonchi appreciated. ABDOMEN: Mildly distended, obese, soft. No significant tenderness to palpation. No rebound, guarding, or masses appreciated. : No suprapubic tenderness to palpation. No Marie catheter in place. MUSCULOSKELETAL: Patient moves all extremities. Strength 4 to 5/5 in upper and lower extremities bilaterally. Patient with a left BKA. NEURO: Grossly nonfocal, no facial drooping. Moves all extremities as noted above. PSYCH: Thought process content and questions are all appropriate. Patient is pleasant and cooperative. She is not anxious. LABORATORY STUDIES: WBC 4.65, H and H is 9.9 and 30.6, slightly above previous available baseline, MCV 95.6, platelet count is 141, no bands. Sodium 137, potassium 4.6, chloride 99, CO2 is 26, anion gap 12, BUN is 50, creatinine is 2.9, GFR is 16, glucose 69, repeated at bedside 90, calcium 8.9, total bilirubin 0.8, conjugated bilirubin 0.7, AST is 40, AST is 47, alkaline phosphatase is 214. Troponin is negative. Total protein 6.3, albumin is 3.8, lipase 112. EKG reviewed by self, sinus bradycardia in the 50s. QTc is 470. Anterior Q- waves possibly secondary to LVH. No acute ST changes. ASSESSMENT AND PLAN: A pleasant 72-year-old female with history of end-stage renal disease on dialysis Saturday, Saturday, Saturday, presents to the emergency department with complaints of nausea, vomiting, and diarrhea for the past 3 days. 1. Nausea, vomiting, diarrhea. Suspect a viral etiology for her symptoms. Patient currently afebrile. She has not had any additional episodes of diarrhea , but a stool PCR is ordered. She has not had any additional episodes of vomiting and nausea is currently improving. She desires to try to take in solid intake starting with some crackers. She has been able to sip on some water. She was previously able to tolerate her oral antihypertensives in the ED. Advance diet as tolerated. 2. Accelerated hypertension. Patient with a history of multidrug resistant hypertension. She is followed by Dr. Rodgers with Cardiology and Dr. Flores with Nephrology. She is currently taking Bystolic, hydralazine, nifedipine, Imdur. She did receive 75 mg of hydralazine and nifedipine p.o. Additionally, I have added p.r.n. IV if needed but her blood pressures are slowly down trending from 230s now into the 180s. We will resume patient's home medications. She is otherwise asymptomatic without any complaints of chest pain or shortness of breath. She does have a headache, but she reports that this feels more like a headache induced by something not eaten, but she desires to try. hold bystolic for bradycardia. 3. End-stage renal disease. Patient was below her dry weight at dialysis earlier today. She did receive a 500 cc bolus in the emergency department. Reports that she feels a little bit better. She does still appear dehydrated, but will advance diet as tolerated. Saline lock IV. Anticipate patient should be able to discharge tomorrow if she is able to tolerate regular diet, stay hydrated, but if it appears patient will remain in the hospital we will need to consult Nephrology to assist with dialysis on Saturday. 4. Anemia of likely chronic kidney disease. No evidence of active bleeding. Monitor H and H in the morning. 5. Diabetes type 2 no longer requiring any antihyperglycemics. Patient currently blood sugars low and did improve, continue to advance diet as tolerated. 6. Hypothyroidism. Resume her levothyroxine replacement. 7. Chronic hypoxic respiratory failure. Continue supplemental oxygen. 8. Hyperlipidemia. Patient is no longer on statin therapy. 9. History of CAD. Continue patient's Bystolic. She is no longer on aspirin or losartan. 10. Fluid, electrolyte and nutrition saline lock IV. Status post 500 cc bolus in the emergency department. Encourage oral hydration. Electrolyte monitoring replacement if needed and renal diet has been ordered. 11. Code status: Full. 12. Prophylaxis: SCDs. Holding anticoagulation with history of anemia, anticipating short hospital stay. 13. Disposition: Patient admitted to observation status on PCU floor, currently in an ED overflow. /[id number]/MODL MTDD
[2018-07-08 05:58] LABS: PLATELET COUNT 135 10^3/uL (150-400)
[2018-07-08] MEDS ORDERED: LEVOTHYROXINE 75 MCG TAB PO SCH (07:00)
[2018-07-08] MEDS ORDERED: NIFEdipine ER 60 MG TAB PO SCH (09:00)
[2018-07-08] MEDS ORDERED: POLYETHYLENE GLYCOL 3350 17 GM PKT PO PRN (10:05)
[2018-07-08] MEDS ORDERED: NEBIVOLOL HCL 5 MG TAB PO SCH (10:15)
[2018-07-08] MEDS ORDERED: NON-FORMULARY NEW DRUG (Isosorbide Mononitrate [Isosorbide Mononitrate Er] 60 MG) PO SCH (10:15)
--- NOTE | 2018-07-08 10:21 | HOSPPROG ---
Hospitalist Progress Note Assessment/Plan: 72 yo F w esrd, n/v/d, htn sx resolved home today see dc summary Subjective: feels well. no further n/v/d. eating. bp ok Objective: Vital Signs Temp Pulse Resp BP Pulse Ox 36.8 C 56 L 14 164/54 H 95 07/08/18 07:50 07/08/18 07:50 07/08/18 07:50 07/08/18 08:28 07/08/18 07:50 Laboratory Results 07/08/18 05:40 07/08/18 05:40 07/07/18 07/08/18 07/09/18 05:59 05:59 05:59 Intake Total 500 Balance 500 - Physical Exam Constitutional: no apparent distress, appears nourished Eyes: PERRL, anicteric sclera Ears, Nose, Mouth, Throat: moist mucous membranes, hearing normal Cardiovascular: regular rate and rhythym, no murmur, rub, or gallop Respiratory: no respiratory distress, no rales or rhonchi Gastrointestinal: normoactive bowel sounds, soft, non-tender abdomen Genitourinary: no bladder fullness, No leon in urethra Skin: warm, normal color Musculoskeletal: full muscle strength Neurologic: AAOx3 ICD10 Worksheet Patient Problems: Problems Problem Status Onset Diarrhea Acute ESRD (end stage renal disease) Acute Hypertension Acute
--- NOTE | 2018-07-08 10:49 | GDS ---
[f rep st] DISCHARGE SUMMARY DISCHARGE DIAGNOSES: 1. Nausea, vomiting, diarrhea. 2. Elevated blood pressures with headache. 3. End-stage renal disease, on dialysis. 4. Coronary artery disease, on medical management. Please see admission history and physical by Dr. Celine Royal. The patient presented with nausea, vo miting, diarrhea, markedly elevated blood pressures and the inability to tolerate her multidrug regim en. Blood pressure was 241/86 on presentation. On the day of discharge which is the 1st full hospit al day, the patient was eating without nausea, vomiting, or diarrhea. She has had no stool or vomiti ng since being here. Blood pressure is controlled. There were no events on telemetry and she feels well. She is discharged home on unchanged medication regimen. /[id number]/MODL
--- NOTE | 2018-07-08 11:23 | ASDISCHSUM ---
Discharge Information Plan Status:Home with No Needs Medically Cleared to Leave:07/08/2018 Discharge Date:07/08/2018 CM D/C Disposition:Home, Routine, Self-Care ADT D/C Disposition: Projected Discharge Date:07/08/2018 Transportation at D/C:Family Discharge Delay Reason: Follow-Up Date:07/08/2018 Discharge Slot: Final Diagnosis: Placement Information Patient Contact Information Contact Name:BROCK Relationship:Jose Rafael Address: Work Phone: City: [facility] Phone: State/Zip Code: Email: Financial Information Financial Class:Medicare Primary Plan Desc:MEDICARE OUTPATIENT Primary Plan Number:[id number] Secondary Plan Desc: Secondary Plan Number: Assessment Information LACE LACE Length of stay for Answers: Less than 1 day current admission Acuity / Level of Answers: No Care: Did the patient have an inpatient admission? Comorbidities - select Answers: Coronary Artery Disease all that apply Diabetes (uncontrolled or controlled) Moderate or severe liver or renal disease Other Notes: HTN; Hypothyroid, amput ati on # of Emergency department Answers: 1-2 visits in the last 6 months Score: 9 Date Signed: 07/08/2018 11:22 AM Electronically Signed By:MARGARTIA Hoyt Case Management Discharge Plan Note Case Management Discharge Discharge Order Complete? Answers: Yes Patient to Obtain Answers: via Family Medications Transportation Arranged Answers: Family/Friends Discharge Comments Notes: Pt is a 72 yo F who presents under obs after a bout of nausea and vomiting. Pt is linked in the community for dialysis MWF. Pt also has outpatient follow-up appts scheduled with her Ortho doc for getting a prosthetic Pt reports she has plans to start doing PT after the appt with Dr. Moser on the of this week. She said she was not interested in getting linked with PT at this time because she already has outpatient plans. No other CM needs identified. Pt has DME and no concerns obtaining meds or transportation. 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 Date Signed: 07/08/2018 11:21 AM Electronically Signed By:MARGARITA Hoyt Intervention Information
[2018-07-08 11:31] VITALS: BP 158/55
[2018-07-08] MEDS ORDERED: CALCIUM ACETATE 667 MG CAP PO SCH (12:00)
--- NOTE | 2018-07-08 12:39 | GCON ---
[f rep st] CONSULTATION DATE OF CONSULTATION: 07/08/2018 REASON FOR CONSULTATION: Opinion regarding end-stage kidney failure. HISTORY OF PRESENT ILLNESS: Ms Boggs is a very pleasant 72-year-old female with end-stage kidney fail ure, on 3 times weekly hemodialysis at the [facility] under the care of Dr. Vincent Flores. She was in her usual state of health until 5 or 6 days ago when she began having n ausea, vomiting, and diarrhea. She was not having hemoptysis, hematemesis, melena, or hematochezia. She did have a bit of abdominal discomfort. She was on dialysis yesterday and saw Dr. Flores. I suggested she come to the emergency department, so she did. She was seen in the [facility], given some IV fluids, and admitted to the hospital. She says she feels better. She was not havin g fevers, cough, sputum, hemoptysis, hematemesis, epistaxis, blurry vision, double vision, headache, orthopnea, paroxysmal nocturnal dyspnea, palpitations, or syncope. She was quite fatigued. PAST MEDICAL HISTORY: Significant for: 1. End-stage kidney failure on 3 times weekly dialysis. 2. Diabetes mellitus type 2. 3. Hypertension. 4. Peripheral vascular occlusive disease. 5. Status post left [id number] amputation. 6. Status post cholecystectomy. 7. Status post hysterectomy. 8. Hyperlipidemia. 9. Hemorrhoids. 10. Coronary artery disease, not amenable to coronary intervention, medical management only. ALLERGIES: Include morphine, Demerol, codeine, and cherries. HOME MEDICATIONS: 1. Bystolic 5 mg half a tab daily. 2. Hydralazine 75 mg twice daily. 3. Synthroid 75 mcg daily. 4. Nifedipine XL 60 mg twice daily. 5. Imdur 60 mg once daily. 6. Reglan. 7. Synthroid 75 mcg daily. 8. Mirtazapine 50 mg half a tab at bedtime. 9. Tylenol as needed. 10. PhosLo 667 mg 1 tab with snacks and meals. 11. Ventolin nebulizer every 6 hours. FAMILY HISTORY: Not contributory to this admission. SOCIAL HISTORY: She lives independently with her son and [id number]. She does not use tobacco, alcohol, IV or recreational drugs. REVIEW OF SYSTEMS: A complete 12-point review of systems was performed with pertinent positives and negatives as per the previous sections. PHYSICAL EXAMINATION: VITAL SIGNS: Blood pressure today is 164/54, pulse 56, respirations 14, tempe rature is 36.8 degrees. GENERAL: She is awake, alert, cooperative. She says she feels better today than she did yesterday. She is sitting on the edge of the bed eating an omelet. HEENT: Pupils are reactive to light. Extraocular movements are intact. Mucous membranes are moist. NECK: Positive f or JVD. No lymphadenopathy or thyromegaly. HEART: Regular with a grade 1 to 2/6 systolic murmur. No rub. LUNGS: Decreased breath sounds and rales in both bases. No rhonchi or wheezes. ABDOMEN: B owel sounds are positive. Soft, nontender, nondistended. EXTREMITIES: Has an amputation on the lef t. Trace edema on the right. NEUROLOGIC: No asterixis. SKIN: No unusual rashes. LYMPH: No palp able lymphadenopathy or lymphedema. MUSCULOSKELETAL: Again she has the amputation on the left and l eft upper arm arteriovenous fistula. LABORATORY: WBC 5.3, hemoglobin 9.2, hematocrit 29, platelet count 135,000. Serum sodium 139, potas sium 4.9, chloride 102, CO2 27, BUN 64, creatinine 3.9, glucose 88, calcium 7.9, phosphorus 5.1, magn esium 2.1, albumin 3.8. AST 48. Lipase 112. IMPRESSION: 1. End-stage kidney failure on 3 times weekly dialysis, she did receive her entire dialysis treatmen t yesterday. 2. Diarrhea, nausea, and vomiting for several days, she was actually below her dry weight yesterday on dialysis. 3. Diabetes mellitus type 2. 4. Un-intervenable coronary artery disease. 5. Peripheral vascular occlusive disease status post left [id number]-ehkf amputation. RECOMMENDATIONS: 1. Continue her current therapies. 2. We will be planning on having her do her dialysis here tomorrow if she is still here. Otherwise she can go back to her regular dialysis unit day and time. Thank you for allowing me to participate in the care of your patient Bela Boggs. If there are an y questions, please do not hesitate to contact us. We will be following along with you. /[id number]/MODL
[2018-07-09] MEDS ORDERED: ISOSORBIDE MONONITRATE 30 MG TAB.SR PO SCH (09:00)
== END 2018-07-08 13:05 | disposition home or self-care (01) ==
LOC: EDUNIT# → F2N 07-08 08:00
PROVIDERS: ADMIT Family Medicine; ATTEND Internal Medicine
DX: R11.2 Nausea with vomiting, unspecified (principal); R19.7 Diarrhea, unspecified; I10 Essential (primary) hypertension; E11.22 Type 2 diabetes mellitus with diabetic chronic kidney disease; N18.6 End stage renal disease; Z99.2 Dependence on renal dialysis; I25.10 Atherosclerotic heart disease of native coronary artery without angina pectoris; E11.51 Type 2 diabetes mellitus with diabetic peripheral angiopathy without gangrene; Z89.512 Acquired absence of left leg below knee; D63.1 Anemia in chronic kidney disease; E03.9 Hypothyroidism, unspecified
CPT/HCPCS: 93005; 96374; 96376; 99285; G0378; J2405; 84484-ER; J0360